=== PATIENT | male | born 1955 | race American Indian/Alaskan Native ===

== ENCOUNTER 2019-05-18 20:58 | Emergency (ER) | payer OTHER ==
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
[2019-05-18] MEDS ORDERED: NORCO 5/325 PO ONE (21:34)
[2019-05-18] MEDS ORDERED: ZOFRAN ODT PO ONE (21:34)
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
[2019-05-19 01:08] VITALS: BP 145/82
== END 2019-05-19 01:08 | disposition home or self-care (01) ==
LOC: ED 20:58
DX: S43.402A Unspecified sprain of left shoulder joint, initial encounter (principal); M62.830 Muscle spasm of back; M62.838 Other muscle spasm; E78.5 Hyperlipidemia, unspecified; N40.0 Benign prostatic hyperplasia without lower urinary tract symptoms; I10 Essential (primary) hypertension; E78.00 Pure hypercholesterolemia, unspecified; Z96.651 Presence of right artificial knee joint; Z87.430 Personal history of prostatic dysplasia; Z79.899 Other long term (current) drug therapy; V49.49XA Driver injured in collision with other motor vehicles in traffic accident, initial encounter; Y93.89 Activity, other specified; Y92.410 Unspecified street and highway as the place of occurrence of the external cause; Y99.8 Other external cause status
CPT/HCPCS: 72040; 72125; 72131; Q0162

== ENCOUNTER 2022-04-13 11:14 | Emergency (ER) | payer OTHER ==
--- NOTE | 2022-04-13 11:44 | Emergency Department Report ---
Blank Doc - Documentation Documentation: [facility] Consult Note # Demographics Consult Type: Acute Stroke Level 1 (0-4.5 hrs) Patient Location: Emergency Room First Name: Laz Last Name: Maddie Date of : 1955 Age: 66 Gender: Male Facility: [facility] Time of Initial Page (Eastern Time): 04/13/2022, 11:08 Time of Return Call (Eastern Time): 04/13/2022, 11:12 # HPI History: 66 year old male who was with a friend who noted patient to not be speaking properly. Pt states he missed his BP meds this morning EMS was called and noted SBP >200. Pt was slow to respond but otherwise non-focal. BP coming down now an dpatient more alert awake Last Known Normal: 30 mins ago # Scores Level of Consciousness 1a: [0] = Alert; keenly responsive LOC Questions 1b: [0] = Answers both questions correctly LOC Commands 1c: [0] = Performs both tasks correctly Best Gaze 2: [0] = Normal Visual 3: [0] = No visual loss Facial Palsy 4: [0] = Normal symmetrical movements Motor Arm Left 5a: [0] = No drift Motor Arm Right 5b: [0] = No drift Motor Leg Left 6a: [0] = No drift Motor Leg Right 6b: [0] = No drift Limb Ataxia 7: [0] = Absent Sensory 8: [0] = Normal Best Language 9: [0] = No aphasia Dysarthria 10: [0] = Normal Extinction and Inattention 11: [0] = No abnormality NIHSS Total: 0 # PMH-FH-SH Past Medical History: hypertension # Data Head CT: no bleed preliminarily reviewed by me, please refer to radiology read for official reading # Assessment Impression: 66 year old male with presentation of slurred speech/slow to respond back to baseline now. BP noted to elevated on presentation, pt missed his BP meds. Concern for HTN urgency vs. TIA # Plan Thrombolytic/Intervention: NOT IV Thrombolysis or IA Intervention candidate Thrombolytic Exclusion (< 3 hour window): NIHSS = 0 Intraarterial Exclusion: NIHSS 0 Target Blood Pressure: SBP < 160 SBP > 110 DBP < 105 Labs: CBC comprehensive metabolic panel hemoglobin A1c lipid panel troponin TSH urine drug screen ua Imaging: (urgency: STAT): CT Head without contrast CT Angiogram Head and CT Angiogram Neck Imaging: (urgency: routine): MRI Brain without contrast Diagnostic Test: echo with bubble study Therapy/Evaluation: NPO until swallow evaluation PT/OT evaluation speech/swallow consultation Medication: aspirin 81 mg PLUS clopidogrel (Plavix) 75 mg for 21 days, then monotherapy therafter start statin with goal of LDL < 70 Other: If patient has any neurological deterioration please call me back immediately telemetry monitoring I have discussed my recommendations with the referring provider Disposition: admit
[2022-04-13] MEDS ORDERED: hydrALAZINE 20 MG/1 ML INJ IV ONE ×2 (11:56→13:32)
[2022-04-13 12:03] LABS: Bilirubin,Urine NEG (Negative); Blood,Urine SM (Negative); Color,Urine Straw (Yellow); Urobilinogen,Urine < 2.0 mg/dL (<2.0)
[2022-04-13 12:04] LABS: WBC,Urine < 1.0 /HPF (0.0-6.0)
[2022-04-13 12:42] LABS: Basophils % (Auto) 0.7 % (0.0-1.8); Eosinophils # (Auto) 0.1 K/mm3 (0.0-0.4); Eosinophils % (Auto) 1.6 % (0.0-4.3); Hematocrit 35.1 % (35.5-45.6); Hemoglobin 11.3 gm/dl (11.8-15.2); Lymphocytes # (Auto) 0.8 K/mm3 (1.2-5.4); Lymphocytes % (Auto) 14.7 % (13.4-35.0); Mean Corpuscular HGB Conc 32 % (32-34); Mean Corpuscular Volume 88 fl (84-94); Monocytes # (Auto) 0.5 K/mm3 (0.0-0.8); Monocytes % (Auto) 9.3 % (0.0-7.3); Platelet Count 140 K/mm3 (140-440); Red Cell Distribution Width 14.6 % (13.2-15.2)
--- NOTE | 2022-04-13 12:43 | Cat Scan Report ---
CT HEAD WITHOUT CONTRAST INDICATION / CLINICAL INFORMATION: ANA SANCHEZ UNKNOWN, AMS ,[id number] . TECHNIQUE: Axial imaging performed from the skull apex through the skull base without the use of cont rast. Sagittal and coronal reformatted images. All CT scans at this location are performed using CT dose reduction for ALARA by means of automated exposure control. COMPARISON: None available. FINDINGS: CEREBRAL PARENCHYMA: No acute parenchymal abnormality is appreciated. Mild chronic microvascular isch emic changes in the white matter are noted. No chronic infarct. HEMORRHAGE: None. EXTRA-AXIAL SPACES: Normal in size and morphology for the patient's age. VENTRICULAR SYSTEM: Normal in size and morphology for the patient's age. MIDLINE SHIFT OR HERNIATION: None. CEREBELLUM / BRAINSTEM: No significant abnormality. CALVARIUM: No significant abnormality. ORBITS: Normal as visualized. PARANASAL SINUSES / MASTOID AIR CELLS: Normal as visualized. SOFT TISSUES of HEAD: No significant abnormality. ADDITIONAL FINDINGS: None. IMPRESSION: No acute intracranial abnormality. CODE STROKE: Time of Communication (HUMAN RESOURCES FILE CLERK/CDT): 1137 hours Licensed Practitioner Receiving Report: Dr. Serrano Signer Name: Gonzalez Thompson Jr, MD Signed: 04/13/2022 12:39 PM Workstation Name: [id number]
[2022-04-13 12:51] LABS: INR 0.94 (0.87-1.13)
[2022-04-13 12:52] LABS: Creatine Kinase MB 2.1 ng/mL (0.0-4.0); Partial Thromboplastin Time 34.3 Sec. (24.2-36.6); Thrombin Time 17.9 Sec. (15.1-19.6)
[2022-04-13 12:53] LABS: Albumin 3.8 g/dL (3.9-5); Calcium 8.9 mg/dL (8.4-10.2)
--- NOTE | 2022-04-13 13:13 | Cat Scan Report ---
CT angio neck INDICATION / CLINICAL INFORMATION: 66 years Male; CODE ANTONIO, ,[id number] 100ML OF OMNIPAQUE 350ML. TECHNIQUE: Thin cut axial images obtained through the head during IV bolus contrast administration. S agittal, coronal, and 3 plane MIP reconstructions performed by the technologist. NASCET type criteria used evaluate stenoses. All CT scans at this location are performed using CT dose reduction for ALAR A by means of automated exposure control. COMPARISON: None available. FINDINGS: CAROTID ARTERIES: There is notable streak artifact resulting from the dense contrast within the venou s structures obscures evaluation of the proximal cerebral arteries. There is also suboptimal timing b olus. However, there is notable atherosclerotic plaque involving proximal left ICA with 30-40% stenos is by NASCET to criteria. The more distal cervical left ICA is unremarkable. There is also extensive atherosclerotic calcification involving proximal right ICA with approximately 25% stenosis by NASCET criteria. There is mild calcification involving the more proximal right commo n carotid artery without significant stenosis. VERTEBRAL ARTERIES: The proximal left vertebral artery is also significantly obscured by the dense in travenous contrast. However, contrast is seen within the mid to distal cervical segments without sign ificant focal narrowing at. The origin of the right vertebral artery is also obscured by the adjacent dense contrast. However, there is no significant focal narrowing involving more distal segments exte nding superiorly from the C6-7 level. ARCH: There is atherosclerotic calcification involving aortic arch. However, there is grossly no sign ificant narrowing of the origins of the arch vessels. ADDITIONAL FINDINGS: Remainder of the surrounding soft tissues are grossly normal. IMPRESSION: There is atherosclerotic calcification involving proximal internal carotid arteries with 30-40% steno sis on the left and 25% stenosis on the right as detailed above. Signer Name: Lawrence Simon MD Signed: 04/13/2022 1:08 PM Workstation Name: [id number]
--- NOTE | 2022-04-13 13:18 | Cat Scan Report ---
CT angio head INDICATION / CLINICAL INFORMATION: 66 years Male; CODE ANTONIO, ,[id number] 100ML OF OMNIPAQUE 350ML. TECHNIQUE: Thin cut axial images obtained through the head during IV bolus contrast administration. S agittal, coronal, and 3 plane MIP reconstructions performed by the technologist. NASCET type criteria used evaluate stenoses. Automated exposure control utilized for radiation reduction purposes. COMPARISON: None available. FINDINGS: INTERNAL CAROTID ARTERIES: There is suboptimal timing bolus as well as beam hardening artifact along the skull base. However, there is atherosclerotic calcification involving intracranial ICAs with mild narrowing of the cavernous segments. VERTEBROBASILAR SYSTEM: There is small focus of calcification involving proximal intracranial right v ertebral artery without significant stenosis. There is no narrowing of the basilar artery. CEREBRAL ARTERIES: The proximal cerebral arteries and adjacent segments appear to demonstrate appropr iate caliber without significant focal stenosis or evidence of large vessel occlusion. ANEURYSM: None identified. ADDITIONAL FINDINGS: Remainder of the surrounding soft tissues are grossly normal. IMPRESSION: There is no clear CTA evidence of large vessel occlusion amenable to endovascular treatment. There is atherosclerotic calcification involving the intracranial ICAs with mild narrowing of the cav ernous segments bilaterally. Signer Name: Lawrence Simon MD Signed: 04/13/2022 1:14 PM Workstation Name: [id number]
--- NOTE | 2022-04-13 14:19 | Emergency Department Report ---
ED General Adult HPI - General Chief complaint: High BP Stated complaint: POSSIBLE STROKE/HBP CRISIS Time Seen by Provider: 04/13/22 11:24 Source: EMS Mode of arrival: Stretcher Limitations: No Limitations - History of Present Illness Initial comments: Pt hypertensive 220/117, per EMS lethargic, confused and delayed on scene. CODE stroke activated -: Sudden, hour(s) (2) Location: head Associated Symptoms: confusion, headaches, weakness - Related Data Previous Rx's Medication Instructions Recorded Last Taken Type Baclofen 20 mg PO Q8H PRN #24 tablet 05/19/19 Unknown Rx traMADoL [Ultram] 50 mg PO Q6HR PRN #15 tablet 05/19/19 Unknown Rx Allergies Allergy/AdvReac Type Severity Reaction Status Date / Time No Known Allergies Allergy Verified 05/18/19 21:15 ED Review of Systems ROS: Stated complaint: POSSIBLE STROKE/HBP CRISIS Other details as noted in HPI Constitutional: denies: chills, fever Eyes: denies: eye pain, eye discharge, vision change ENT: denies: ear pain, throat pain Respiratory: denies: cough, shortness of breath, wheezing Cardiovascular: denies: chest pain, palpitations Endocrine: no symptoms reported Gastrointestinal: denies: abdominal pain, nausea, diarrhea Genitourinary: denies: urgency, dysuria Musculoskeletal: denies: back pain, joint swelling, arthralgia Skin: denies: rash, lesions Neurological: denies: headache, weakness, paresthesias Psychiatric: denies: anxiety, depression Hematological/Lymphatic: denies: easy bleeding, easy bruising ED Past Medical Hx - Past Medical History Previous Medical History?: Yes Hx Hypertension: Yes Additional medical history: enlarged prostate. high cholestrol - Surgical History Past Surgical History?: Yes Additional Surgical History: right knee replacement - Social History Smoking Status: Never Smoker Substance Use Type: Alcohol - Medications Home Medications: Home Medications Medication Instructions Recorded Confirmed Last Taken Type Baclofen 20 mg PO Q8H PRN #24 tablet 05/19/19 Unknown Rx traMADoL [Ultram] 50 mg PO Q6HR PRN #15 tablet 05/19/19 Unknown Rx ED Physical Exam - General Limitations: No Limitations General appearance: alert, in no apparent distress - Head Head exam: Present: atraumatic, normocephalic - Eye Eye exam: Present: normal appearance - ENT ENT exam: Present: mucous membranes moist - Neck Neck exam: Present: normal inspection - Respiratory Respiratory exam: Present: normal lung sounds bilaterally. Absent: respiratory distress - Cardiovascular Cardiovascular Exam: Present: regular rate, normal rhythm. Absent: systolic murmur, diastolic murmur, rubs, gallop - GI/Abdominal GI/Abdominal exam: Present: soft, normal bowel sounds - Rectal Rectal exam: Present: deferred - Extremities Exam Extremities exam: Present: normal inspection - Back Exam Back exam: Present: normal inspection - Neurological Exam Neurological exam: Present: alert, oriented X3 - Psychiatric Psychiatric exam: Present: normal affect, normal mood - Skin Skin exam: Present: warm, dry, intact, normal color. Absent: rash ED Course Vital Signs 04/13/22 04/13/22 04/13/22 11:18 11:19 11:51 Temperature 97.6 F Pulse Rate 83 63 64 Respiratory 17 17 12 Rate Blood Pressure Blood Pressure 203/100 220/117 [Right] O2 Sat by Pulse 99 98 96 Oximetry 04/13/22 04/13/22 04/13/22 12:00 12:16 12:30 Temperature Pulse Rate 62 61 57 L Respiratory 14 13 19 Rate Blood Pressure 211/101 205/96 204/98 Blood Pressure [Right] O2 Sat by Pulse 100 100 100 Oximetry 04/13/22 04/13/22 12:33 13:37 Temperature Pulse Rate 85 87 Respiratory 18 Rate Blood Pressure 200/85 Blood Pressure 200/85 [Right] O2 Sat by Pulse 99 Oximetry ED Medical Decision Making - Lab Data Result diagrams: 04/13/22 11:45 04/13/22 11:45 - EKG Data -: EKG Interpreted by Me EKG shows normal: sinus rhythm Rate: normal - EKG Data Interpretation: LVH - Radiology Data Radiology results: report reviewed, image reviewed - Medical Decision Making stroke alert on arrival , head ct egative , symptoms , back to normal , no tpa candidate , BP controlled wiht hdyralalzine , renal imapriment noted will admit Critical care attestation.: If time is entered above; I have spent that time in minutes in the direct care of this critically ill patient, excluding procedure time. ED Disposition Clinical Impression: TIA (transient ischemic attack), Hypertensive urgency Disposition: ADMITTED INPATIENT Is pt being admited?: Yes Does the pt Need Aspirin: No Condition: Fair
[2022-04-13] MEDS ORDERED: ALBUTEROL 2.5 MG/3 ML NEBU IH ONE (16:24)
[2022-04-13] MEDS ORDERED: IPRATROPIUM 0.02% NEBU 2.5 ML IH ONE (16:25)
[2022-04-13 20:15] VITALS: BP 165/92
--- NOTE | 2022-04-14 11:11 | Electrocardiograph Report ---
[facility] Test Date: 2022-04-13 Test Time: 11:50:14 Pat Name: GERALD FRAZIER Department: Room: ED Gender: M [employer]: 911 : 1955 Requested By: SUSANA PERRY Order Number: [id number] Reading MD: Shawn Humphrey Measurements Intervals [place] Rate: 64 P: 0 KS: 81 QRS: -15 QRSD: 103 T: 4 QT: 446 QTc: 461 Interpretive Statements Sinus rhythm Ventricular premature complex Aberrant conduction of SV complex(es) Left atrial enlargement Baseline artifacts noted. No previous ECG available for comparison Electronically Signed On 04-14-2022 11:11:05 EDT by Shawn Humphrey
== END 2022-04-14 05:18 | disposition admitted as inpatient to this hospital (09) ==
LOC: ED 11:14
DX: G45.9 Transient cerebral ischemic attack, unspecified (principal); I16.0 Hypertensive urgency
CPT/HCPCS: 36415; 70450; 70496; 70498; 80053; 81001; 82550; 82553; 82962; 84484; 85025; 85610; 85670; 85730; 93005; 96374; 96375; 96376; 99285; J0360; J3490; Q9967